=== PATIENT | female | born 1965 | race Hispanic/Latino ===

== ENCOUNTER 2020-08-05 08:43 | Emergency (ER) | payer OTHER ==
[~2020-08-05] VITALS: Ht 152.4 cm; Wt 98.0 kg
[2020-08-05] VITALS (9 sets, daily range): BP systolic 152–198; BP diastolic 63–83
[2020-08-05 10:01] LABS: EOSINOPHILS % (AUTO) 2.8 % (0.0-8.0); HEMATOCRIT 31.8 % (36-48); LYMPHOCYTES % (AUTO) 31.6 % (21.0-51.0); MEAN CORPUSCULAR HEMOGLOBIN 30.3 pg (27.0-33.0); MEAN CORPUSCULAR VOLUME 89.3 fL (79-99); MONOCYTES % (AUTO) 9.1 % (3.0-13.0); NEUTROPHILS % (AUTO) 55.3 % (40.0-77.0); PLATELET COUNT (AUTO) 316 K/uL (130-400); RED BLOOD CELL COUNT(AUTO) 3.56 MIL/uL (4.00-5.50); RED CELL DISTRIBUTION WIDTH 12.5 % (11.0-15.5); WHITE BLOOD COUNT (AUTO) 10.3 K/uL (4.8-10.8)
[2020-08-05 10:10] LABS: CREATININE 1.1 mg/dL (0.5-1.5); POTASSIUM 4.9 mmol/L (3.5-5.1)
[2020-08-05 10:19] LABS: ALBUMIN 2.9 g/dL (3.5-5.0); BILIRUBIN,TOTAL 0.4 mg/dL (0.2-1.0); TOTAL PROTEIN, SERUM 7.4 g/dL (6.0-8.3)
[2020-08-05 10:51] LABS: APPEARANCE,URINE Cloudy (CLEAR); BILIRUBIN,URINE Negative (NEGATIVE); COLOR,URINE Yellow (YELLOW); GLUCOSE, URINE (UA) Negative (NEGATIVE); KETONES,URINE Negative (NEGATIVE); LEUKOCYTE ESTERASE ,URINE Trace (NEGATIVE); NITRATE,URINE Negative (NEGATIVE); OCCULT BLOOD,URINE Negative (NEGATIVE); PH,URINE 7.5 (5.0-8.0); PROTEIN,URINE 300 mg/dL (NEGATIVE); UROBILINOGEN,URINE 0.2 mg/dL (0.2-1.0)
[2020-08-05 11:29] LABS: BACTERIA,URINE Few /HPF (None Seen); RBC,URINE None Seen /HPF (0-1); WBC,URINE 0-1 /HPF (0-1)
[2020-08-05] MEDS ORDERED: HYOS-28 PO (16:06)
[2020-08-05] MEDS ORDERED: FAMO-136 PO (16:06)
[2020-08-05] MEDS ORDERED: ONDA4TAB4 PO (16:06)
[2020-08-05] MEDS ORDERED: POLY17PO4 PO (16:06)
[2020-08-05] MEDS ORDERED: NITROGLYCERIN 1GM/1 INCH PACKET TD ONE ×2 (16:30→16:37)
[2020-08-05] MEDS ORDERED: LORAZEPAM 1 MG TABLET ONE (17:41)
[2020-08-05] MEDS ORDERED: LORAZEPAM 1 MG TABLET PO ONE (17:45)
[2020-08-05] MEDS ORDERED: HYDRALAZINE HCL 20 MG/ML VIAL IV ONE (17:45)
== END 2020-08-05 18:40 | disposition home or self-care (01) ==
LOC: EDH 08:43
DX: K21.9 Gastro-esophageal reflux disease without esophagitis (principal); R07.89 Other chest pain; R20.2 Paresthesia of skin; R11.2 Nausea with vomiting, unspecified; Z86.73 Personal history of transient ischemic attack (TIA), and cerebral infarction without residual deficits; E11.9 Type 2 diabetes mellitus without complications; I10 Essential (primary) hypertension; E66.9 Obesity, unspecified; Z68.41 Body mass index [BMI] 40.0-44.9, adult; Z90.49 Acquired absence of other specified parts of digestive tract
CPT/HCPCS: 36415; 70450; 70544; 70547; 70551; 71045; 80053; 81001; 83690; 84484 ×2; 85025; 93005 ×3; 96374; 99285; J0360

== ENCOUNTER 2020-11-28 14:31 | Inpatient (IN) | payer OTHER ==
[~2020-11-28] VITALS: Ht 154.9 cm; Wt 101.4 kg
[~2020-11-28 14:31] MED LIST: FAMO-136 PO; HYOS-28 PO; ONDA4TAB4 PO; POLY17PO4 PO
[2020-11-28 15:45] LABS: BASOPHILS % (AUTO) 0.8 % (0.0-5.0); EOSINOPHILS % (AUTO) 2.5 % (0.0-8.0); HEMATOCRIT 30.5 % (36-48); LYMPHOCYTES % (AUTO) 30.4 % (21.0-51.0); MEAN CORPUSCULAR HEMOGLOBIN 29.1 pg (27.0-33.0); MEAN CORPUSCULAR HGB CONC 33.1 g/dL (32.0-36.0); MEAN CORPUSCULAR VOLUME 87.9 fL (79-99); MONOCYTES % (AUTO) 9.8 % (3.0-13.0); NEUTROPHILS % (AUTO) 56.2 % (40.0-77.0); PLATELET COUNT (AUTO) 235 K/uL (130-400); RED BLOOD CELL COUNT(AUTO) 3.47 MIL/uL (4.00-5.50); RED CELL DISTRIBUTION WIDTH 14.7 % (11.0-15.5); WHITE BLOOD COUNT (AUTO) 7.9 K/uL (4.8-10.8)
[2020-11-28 16:08] LABS: CREATININE 1.3 mg/dL (0.5-1.5); POTASSIUM 4.5 mmol/L (3.5-5.1)
[2020-11-28 16:12] LABS: ALBUMIN 2.6 g/dL (3.5-5.0); BILIRUBIN,TOTAL 0.2 mg/dL (0.2-1.0); MAGNESIUM 2.1 mg/dL (1.80-2.40); TOTAL PROTEIN, SERUM 7.1 g/dL (6.0-8.3)
[2020-11-28 16:26] LABS: B-TYPE NATRIURETIC PEPTIDE 557 pg/mL (0-100)
[2020-11-28] MEDS ORDERED: ACETAMINOPHEN 325 MG TAB PO PRN ×2 (18:00)
[2020-11-28] MEDS: NITROGLYCERIN 1GM OINT 1 INCH/1GM TD SCH (18:00)
[2020-11-28] MEDS ORDERED: ONDANSETRON 4MG INJ IV PRN (18:00)
[2020-11-28 18:04] LABS: RETICULOCYTE % (AUTO) 2.77 % (0.42-2.23)
[2020-11-28 18:23] LABS: HEMOGLOBIN A1C 7.7 % (4.0-6.0)
[2020-11-28 18:32] LABS: % IRON SATURATION 18.3 % (22-44)
[2020-11-28 19:32] LABS: ABG BASE EXCESS -0.6 mmol/L (-2.0-3.0); ABG HCO3 23.9 mmol/L (21.0-28.0); ABG OXYGEN SATURATION 97.5 % (95.0-99.0); ABG PCO2 39 mmHg (32-45)
[2020-11-28] MEDS: FUROSEMIDE 40MG VIAL IVP SCH (19:51)
[2020-11-28] MEDS: CARVEDILOL 3.125 MG TABLET PO SCH (19:51)
[2020-11-28] MEDS ORDERED: HYDRALAZINE 20MG/ML VIAL IV SCH (20:10)
[2020-11-28] MEDS: FAMOTIDINE 20MG TAB PO SCH (20:26)
[2020-11-28] MEDS: NIFEDIPINE 10 MG CAP PO SCH (20:33)
[2020-11-28] MEDS: INSULIN HUMULIN R 100 UNIT/ML 3ML SQ SCH (20:44)
[2020-11-29 01:11] LABS: ALBUMIN 2.4 g/dL (3.5-5.0); BILIRUBIN,TOTAL 0.2 mg/dL (0.2-1.0); CREATININE 1.7 mg/dL (0.5-1.5); POTASSIUM 4.2 mmol/L (3.5-5.1); TOTAL PROTEIN, SERUM 6.6 g/dL (6.0-8.3)
[2020-11-29] MEDS: NITROGLYCERIN 1GM OINT 1 INCH/1GM TD SCH ×3 (02:00→18:36)
[2020-11-29 02:49] VITALS: BP 135/50
[2020-11-29] MEDS: INSULIN HUMULIN R 100 UNIT/ML 3ML SQ SCH ×4 (06:06→21:33)
[2020-11-29 06:23] LABS: CREATININE 1.6 mg/dL (0.5-1.5); POTASSIUM 4.3 mmol/L (3.5-5.1)
[2020-11-29 07:30] VITALS: BP 143/66
[2020-11-29] MEDS ORDERED: IPRATROPIUM/ALBUTEROL SULFATE 3 ML SOLUTION IH PRN (08:00)
[2020-11-29] MEDS: ENOXAPARIN SODIUM 40 MG/0.4 ML SYRINGE SQ SCH (08:55)
[2020-11-29] MEDS: NIFEDIPINE 10 MG CAP PO SCH ×3 (08:55→20:15)
[2020-11-29] MEDS: CARVEDILOL 3.125 MG TABLET PO SCH ×2 (08:56→20:17)
[2020-11-29] MEDS: FUROSEMIDE 40MG VIAL IVP SCH ×2 (08:56→20:17)
[2020-11-29 11:00] VITALS: BP 108/45
[2020-11-29 16:00] VITALS: BP 104/50
[2020-11-29 20:00] VITALS: BP 129/55
[2020-11-29] MEDS: FAMOTIDINE 20MG TAB PO SCH (20:15)
[2020-11-29 23:37] VITALS: BP 118/52
[2020-11-30] VITALS (7 sets, daily range): BP systolic 109–156; BP diastolic 45–65
[2020-11-30] MEDS: NITROGLYCERIN 1GM OINT 1 INCH/1GM TD SCH ×3 (04:09→18:12)
[2020-11-30 04:47] LABS: CREATININE 1.4 mg/dL (0.5-1.5); POTASSIUM 4.3 mmol/L (3.5-5.1)
[2020-11-30] MEDS: INSULIN HUMULIN R 100 UNIT/ML 3ML SQ SCH ×4 (07:30→20:09)
[2020-11-30] MEDS: FUROSEMIDE 40MG VIAL IVP SCH ×2 (09:46→21:17)
[2020-11-30] MEDS: ENOXAPARIN SODIUM 40 MG/0.4 ML SYRINGE SQ SCH (09:47)
[2020-11-30] MEDS: NIFEDIPINE 10 MG CAP PO SCH ×3 (09:47→21:16)
[2020-11-30] MEDS: CARVEDILOL 3.125 MG TABLET PO SCH ×2 (09:47→21:16)
[2020-11-30] MEDS: FAMOTIDINE 20MG TAB PO SCH (21:16)
[2020-12-01] MEDS: NITROGLYCERIN 1GM OINT 1 INCH/1GM TD SCH ×3 (02:09→16:41)
[2020-12-01 04:22] VITALS: BP 145/62
[2020-12-01] MEDS ORDERED: LACTULOSE 20 GM/30 ML UDCUP ONE (06:22)
[2020-12-01] MEDS: INSULIN HUMULIN R 100 UNIT/ML 3ML SQ SCH ×4 (06:39→21:00)
[2020-12-01] MEDS ORDERED: LACTULOSE 20 GM/30 ML UDCUP PO SCH (07:18)
[2020-12-01] MEDS ORDERED: SPIR50TA5 PO (07:34)
[2020-12-01] MEDS ORDERED: FURO40TA5 PO (07:34)
[2020-12-01] MEDS ORDERED: METF-445 PO (07:34)
[2020-12-01] MEDS ORDERED: CARV3.12 PO (07:34)
[2020-12-01 08:00] VITALS: BP 146/59
[2020-12-01] MEDS: CARVEDILOL 3.125 MG TABLET PO SCH ×2 (09:36→20:10)
[2020-12-01] MEDS: NIFEDIPINE 10 MG CAP PO SCH ×3 (09:36→20:10)
[2020-12-01] MEDS: FUROSEMIDE 40MG VIAL IVP SCH ×2 (09:36→20:10)
[2020-12-01] MEDS: ENOXAPARIN SODIUM 40 MG/0.4 ML SYRINGE SQ SCH (09:37)
[2020-12-01 11:52] VITALS: BP 125/39
[2020-12-01 16:00] VITALS: BP 132/51
[2020-12-01] MEDS: FAMOTIDINE 20MG TAB PO SCH (20:10)
[2020-12-01 20:13] VITALS: BP 153/74
[2020-12-01 23:56] VITALS: BP 141/65
[2020-12-02] MEDS: NITROGLYCERIN 1GM OINT 1 INCH/1GM TD SCH ×3 (01:32→16:43)
[2020-12-02 03:36] VITALS: BP 140/64
[2020-12-02] MEDS: INSULIN HUMULIN R 100 UNIT/ML 3ML SQ SCH ×4 (05:31→21:00)
[2020-12-02 05:41] LABS: BASOPHILS % (AUTO) 0.6 % (0.0-5.0); EOSINOPHILS % (AUTO) 5.4 % (0.0-8.0); HEMATOCRIT 27.3 % (36-48); MEAN CORPUSCULAR HEMOGLOBIN 28.2 pg (27.0-33.0); MEAN CORPUSCULAR HGB CONC 31.5 g/dL (32.0-36.0); MEAN CORPUSCULAR VOLUME 89.5 fL (79-99); MONOCYTES % (AUTO) 11.8 % (3.0-13.0); NEUTROPHILS % (AUTO) 48.1 % (40.0-77.0); PLATELET COUNT (AUTO) 228 K/uL (130-400); RED BLOOD CELL COUNT(AUTO) 3.05 MIL/uL (4.00-5.50); RED CELL DISTRIBUTION WIDTH 14.5 % (11.0-15.5); WHITE BLOOD COUNT (AUTO) 6.9 K/uL (4.8-10.8)
[2020-12-02 06:12] LABS: POTASSIUM 4.3 mmol/L (3.5-5.1)
[2020-12-02 06:45] LABS: ALBUMIN 2.4 g/dL (3.5-5.0); BILIRUBIN,TOTAL 0.2 mg/dL (0.2-1.0); CREATININE 1.6 mg/dL (0.5-1.5); TOTAL PROTEIN, SERUM 6.6 g/dL (6.0-8.3)
[2020-12-02 08:00] VITALS: BP 145/59
[2020-12-02] MEDS: NIFEDIPINE 10 MG CAP PO SCH ×3 (09:25→21:25)
[2020-12-02] MEDS: FUROSEMIDE 40MG VIAL IVP SCH ×2 (09:25→09:33)
[2020-12-02] MEDS: CARVEDILOL 3.125 MG TABLET PO SCH ×2 (09:26→21:26)
[2020-12-02] MEDS: ENOXAPARIN SODIUM 40 MG/0.4 ML SYRINGE SQ SCH (09:27)
[2020-12-02 11:47] VITALS: BP 151/64
[2020-12-02 16:00] VITALS: BP 131/49
[2020-12-02] MEDS ORDERED: FAMO20TA8 PO (18:15)
[2020-12-02] MEDS ORDERED: NIFE10 PO (18:15)
[2020-12-02 19:40] VITALS: BP 157/50
[2020-12-02] MEDS: FAMOTIDINE 20MG TAB PO SCH (21:25)
[2020-12-03] VITALS (7 sets, daily range): BP systolic 109–167; BP diastolic 55–70
[2020-12-03] MEDS: NITROGLYCERIN 1GM OINT 1 INCH/1GM TD SCH (01:09)
[2020-12-03 05:20] LABS: BASOPHILS % (AUTO) 0.6 % (0.0-5.0); EOSINOPHILS % (AUTO) 7.4 % (0.0-8.0); LYMPHOCYTES % (AUTO) 35.5 % (21.0-51.0); MEAN CORPUSCULAR HEMOGLOBIN 28.7 pg (27.0-33.0); MEAN CORPUSCULAR HGB CONC 32.6 g/dL (32.0-36.0); MEAN CORPUSCULAR VOLUME 87.9 fL (79-99); MONOCYTES % (AUTO) 12.7 % (3.0-13.0); NEUTROPHILS % (AUTO) 43.6 % (40.0-77.0); PLATELET COUNT (AUTO) 236 K/uL (130-400); RED BLOOD CELL COUNT(AUTO) 3.07 MIL/uL (4.00-5.50); RED CELL DISTRIBUTION WIDTH 14.6 % (11.0-15.5); WHITE BLOOD COUNT (AUTO) 6.5 K/uL (4.8-10.8)
[2020-12-03 05:38] LABS: ALBUMIN 2.4 g/dL (3.5-5.0); BILIRUBIN,TOTAL 0.3 mg/dL (0.2-1.0); CREATININE 1.4 mg/dL (0.5-1.5); POTASSIUM 4.7 mmol/L (3.5-5.1); TOTAL PROTEIN, SERUM 6.7 g/dL (6.0-8.3)
[2020-12-03] MEDS: INSULIN HUMULIN R 100 UNIT/ML 3ML SQ SCH ×4 (05:48→19:53)
[2020-12-03] MEDS: CARVEDILOL 3.125 MG TABLET PO SCH ×2 (08:12→20:59)
[2020-12-03] MEDS: NIFEDIPINE 10 MG CAP PO SCH ×3 (08:12→20:59)
[2020-12-03] MEDS: ENOXAPARIN SODIUM 40 MG/0.4 ML SYRINGE SQ SCH (08:12)
[2020-12-03] MEDS: FUROSEMIDE 40MG VIAL IVP SCH (08:13)
[2020-12-03] MEDS: FAMOTIDINE 20MG TAB PO SCH (20:59)
[2020-12-04 03:40] VITALS: BP 161/69
[2020-12-04] MEDS: INSULIN HUMULIN R 100 UNIT/ML 3ML SQ SCH (05:48)
[2020-12-04 08:01] VITALS: BP 155/71
[2020-12-04] MEDS ORDERED: FUROSEMIDE 40 MG TABLET PO SCH ×2 (09:00→10:16)
[2020-12-04] MEDS: ENOXAPARIN SODIUM 40 MG/0.4 ML SYRINGE SQ SCH (09:43)
[2020-12-04] MEDS: NIFEDIPINE 10 MG CAP PO SCH (09:44)
[2020-12-04] MEDS: CARVEDILOL 3.125 MG TABLET PO SCH (09:44)
[2020-12-04] MEDS ORDERED: SPIRONOLACTONE 25 MG TAB PO SCH (10:17)
[2020-12-04 11:22] VITALS: BP 129/57
== END 2020-12-04 13:10 | disposition home or self-care (01) | DRG 194 ==
LOC: EDH 14:31 → EDHIP 14:32 → 4BH 11-29 00:18
PROVIDERS: ADMIT Internal Medicine; ATTEND Internal Medicine
PROC: 5A09357 Assistance with Respiratory Ventilation, Less than 24 Consecutive Hours, Continuous Positive Airway Pressure (ICD-10-PCS; principal; 2020-11-29)
PROC: 5A09357 Assistance with Respiratory Ventilation, Less than 24 Consecutive Hours, Continuous Positive Airway Pressure (ICD-10-PCS; 2020-11-30)
PROC: 5A09357 Assistance with Respiratory Ventilation, Less than 24 Consecutive Hours, Continuous Positive Airway Pressure (ICD-10-PCS; 2020-12-01)
PROC: 5A09357 Assistance with Respiratory Ventilation, Less than 24 Consecutive Hours, Continuous Positive Airway Pressure (ICD-10-PCS; 2020-12-02)
PROC: 5A09357 Assistance with Respiratory Ventilation, Less than 24 Consecutive Hours, Continuous Positive Airway Pressure (ICD-10-PCS; 2020-12-03)
DX: I13.0 Hypertensive heart and chronic kidney disease with heart failure and stage 1 through stage 4 chronic kidney disease, or unspecified chronic kidney disease (principal); J96.01 Acute respiratory failure with hypoxia; I27.20 Pulmonary hypertension, unspecified; N17.9 Acute kidney failure, unspecified; E11.22 Type 2 diabetes mellitus with diabetic chronic kidney disease; E66.2 Morbid (severe) obesity with alveolar hypoventilation; Z68.41 Body mass index [BMI] 40.0-44.9, adult; N18.31 Chronic kidney disease, stage 3a; I50.33 Acute on chronic diastolic (congestive) heart failure; I16.0 Hypertensive urgency; D64.9 Anemia, unspecified; E78.5 Hyperlipidemia, unspecified; I25.10 Atherosclerotic heart disease of native coronary artery without angina pectoris; I31.3 Pericardial effusion (noninflammatory); K76.0 Fatty (change of) liver, not elsewhere classified; M47.819 Spondylosis without myelopathy or radiculopathy, site unspecified; M48.061 Spinal stenosis, lumbar region without neurogenic claudication; Z20.822 Contact with and (suspected) exposure to COVID-19; Z79.82 Long term (current) use of aspirin; Z79.84 Long term (current) use of oral hypoglycemic drugs; Z79.899 Other long term (current) drug therapy; Z87.01 Personal history of pneumonia (recurrent); Z87.891 Personal history of nicotine dependence; Z90.710 Acquired absence of both cervix and uterus; Z90.49 Acquired absence of other specified parts of digestive tract
CPT/HCPCS: 36415; 36600; 71045; 71046; 76700; 78582; 80048; 80053; 82270; 82550; 82803; 82948; 83036; 83540; 83550; 83735; 83874; 83880; 84443; 84484; 85025; 85045; 85378; 87635; 87804; 93306; 93356; 93970; 94640; 94660; 94664; A9540; A9558; G0378; J0360; J1650; J1815; J1940